=== PATIENT | male | born 1990 | race Caucasian/White ===

== ENCOUNTER 2018-12-05 19:00 | Emergency (ER) | payer MEDICAID ==
[2018-12-05] MEDS ORDERED: Pantoprazole 40 MG Vial IVPUSH ONE (19:39)
[2018-12-05] MEDS ORDERED: Sodium Chloride 0.9% 10 ML Syringe FLUSH PRN (19:39)
[2018-12-05] MEDS ORDERED: Ondansetron 4 MG/2 ML SDV IVPUSH ONE (19:39)
[2018-12-05] MEDS ORDERED: Sodium Chloride 0.9% 1,000 ML IV ONE (19:39)
[2018-12-05] MEDS ORDERED: Sodium Chloride 0.9% 2.5 ML Syringe FLUSH PRN (19:39)
--- NOTE | 2018-12-05 19:43 | EDM.PDOC ---
ED HPI GENERAL MEDICAL PROBLEM - General Chief Complaint: Abdominal Pain Stated Complaint: STOMACH PAINS Time Seen by Provider: 12/05/18 19:34 - History of Present Illness INITIAL COMMENTS - FREE TEXT/NARRATIVE: HISTORY AND PHYSICAL: History of present illness: The patient is a 28-year-old male with no GI history or abdominal surgical history who presents with a one-week history of left-sided upper abdominal pain which he indicates is underneath his left ribs. He says it radiates to the back and it is worse when he coughs. He's had nausea but no vomiting and no diarrhea. He denies any history of food intolerances and says the pain does not get better or worse with eating. He has not taken any [id number] meds such as antacids but did take an old amoxicillin because he thought he might have the flu. He says he does cough because he is a regular smoker and the discomfort underneath the ribs and in the abdomen is worse when he coughs. He told nursing that went to the right side but on my examination he did not state that and he denied any right-sided pain when I asked. He denied urinary symptoms and trauma. Patient admits that he smokes cigarettes and marijuana but denies meth or cocaine use. He says he is not had alcohol recently and there was no specific trigger for the start of this pain. He says it waxes and wanes over the last one week but never goes away completely. Review of systems: As per history of present illness and below otherwise all systems reviewed and negative. Past medical history: As per history of present illness and as reviewed below otherwise noncontributory. Surgical history: As per history of present illness and as reviewed below otherwise noncontributory. Social history: No reported history of drug or alcohol abuse. Family history: As per history of present illness and as reviewed below otherwise noncontributory. Physical exam: General: Well-developed well-nourished thin man who is nontoxic and vital signs are noted by me. A strong smell of tobacco is in the room. HEENT: Atraumatic, normocephalic, pupils reactive, negative for conjunctival pallor or scleral icterus, mucous membranes moist, throat clear, neck supple, nontender, trachea midline. Lungs: Clear to auscultation, breath sounds equal bilaterally, chest nontender. Heart: S1S2, regular, negative for clicks, rubs, or JVD. No overt murmur Abdomen: Soft, nondistended, bowel sounds are hypoactive and there is some mild tenderness in the left upper quadrant on deep palpation without rebound or guarding. There is no tympany on percussion. Negative for masses or hepatosplenomegaly. Negative for costovertebral tenderness. Pelvis: Stable nontender. Genitourinary: Deferred. Rectal: Deferred. Extremities: Atraumatic, negative for cords or calf pain. Neurovascular unremarkable. Neuro: Awake, alert, oriented. Cranial nerves II through XII unremarkable. Cerebellum unremarkable. Motor and sensory unremarkable throughout. Exam nonfocal. Diagnostics: CBC CMP amylase lipase H. pylori UA abdominal x-rays with chest Therapeutics: IV fluids Zofran and Protonix Patient is feeling better and is aware of all testing results but he keeps telling me that when he moves certain ways the pain will get worse which I told him is likely musculoskeletal as all sting results are negative. I've advised him to improve his diet and push hydration and will give him a PPI for home Impression: Left upper quadrant/side pain Definitive disposition and diagnosis as appropriate pending reevaluation and review of above. Abdomen Pain Score (Numeric/FACES): 8 - Related Data Allergies Allergy/AdvReac Type Severity Reaction Status Date / Time acetaminophen [From Tylenol] Allergy Hives Verified 12/05/18 19:32 ibuprofen Allergy Hives Verified 12/05/18 19:32 Home Meds: Home Meds . [No Known Home Meds] 12/05/18 [History] Past Medical History HEENT History: Reports: None Cardiovascular History: Reports: None Respiratory History: Reports: Asthma Gastrointestinal History: Reports: None Genitourinary History: Reports: None Musculoskeletal History: Reports: Fracture Neurological History: Reports: None Psychiatric History: Reports: Depression Endocrine/Metabolic History: Reports: None Hematologic History: Reports: None Immunologic History: Reports: None Oncologic (Cancer) History: Reports: None Dermatologic History: Reports: None - Infectious Disease History Infectious Disease History: Reports: Chicken Pox - Past Surgical History Head Surgeries/Procedures: Reports: None Social & Family History - Tobacco Use Smoking Status *Q: Current Every Day Smoker Years of Tobacco use: 14 Packs/Tins Daily: 1 - Caffeine Use Caffeine Use: Reports: Soda - Recreational Drug Use Recreational Drug Use: Yes Recreational Drug Type: Reports: Marijuana/Hashish Recreational Drug Use Frequency: Daily ED ROS GENERAL - Review of Systems Review Of Systems: ROS reveals no pertinent complaints other than HPI. ED EXAM, GENERAL - Physical Exam Exam: See Below (See dictation) Course - Vital Signs Last Recorded V/S: Last Vital Signs Temp 37.4 C 12/05/18 19:29 Pulse 63 12/05/18 19:29 Resp BP 118/63 12/05/18 19:29 Pulse Ox 98 12/05/18 19:29 - Orders/Labs/Meds Orders: Active Orders 24 hr Category Date Time Status Abdomen Series w Chest 1V [CR] Stat Exams 12/05/18 19:39 Taken Sodium Chloride 0.9% [Saline Flush] Med 12/05/18 19:39 Active 10 ml FLUSH ASDIRECTED PRN Sodium Chloride 0.9% [Saline Flush] Med 12/05/18 19:39 Active 2.5 ml FLUSH ASDIRECTED PRN Saline Lock Insert [OM.PC] Stat Oth 12/05/18 19:38 Ordered Medication Orders Sodium Chloride (Saline Flush) 10 ml FLUSH ASDIRECTED PRN PRN Reason: Keep Vein Open Sodium Chloride (Saline Flush) 2.5 ml FLUSH ASDIRECTED PRN PRN Reason: Keep Vein Open Labs: Laboratory Tests 12/05/18 12/05/18 12/05/18 Range/Units 19:40 19:40 19:40 WBC 7.79 (4.0-11.0) K/uL RBC 4.82 (4.50-5.90) M/uL Hgb 15.5 (13.0-17.0) g/dL Hct 43.6 (38.0-50.0) % MCV 90.5 (80.0-98.0) fL MCH 32.2 H (27.0-32.0) pg MCHC 35.6 (31.0-37.0) g/dL RDW Std Deviation 42.4 (28.0-62.0) fl RDW Coeff of Ciro 13 (11.0-15.0) % Plt Count 189 (150-400) K/uL MPV 10.00 (7.40-12.00) fL Neut % (Auto) 44.7 L (48.0-80.0) % Lymph % (Auto) 41.6 H (16.0-40.0) % Putnam % (Auto) 9.1 (0.0-15.0) % Eos % (Auto) 4.1 (0.0-7.0) % Baso % (Auto) 0.5 (0.0-1.5) % Neut # (Auto) 3.5 (1.4-5.7) K/uL Lymph # (Auto) 3.2 H (0.6-2.4) K/uL Putnam # (Auto) 0.7 (0.0-0.8) K/uL Eos # (Auto) 0.3 (0.0-0.7) K/uL Baso # (Auto) 0.0 (0.0-0.1) K/uL Nucleated RBC % 0.0 /100WBC Nucleated RBCs # 0 K/uL Sodium 139 (136-148) mmol/L Potassium 3.9 (3.5-5.1) mmol/L Chloride 105 (98-107) mmol/L Carbon Dioxide 26.4 (21.0-32.0) mmol/L BUN 16 (7.0-18.0) mg/dL Creatinine 1.1 (0.8-1.3) mg/dL Est Cr Clr Drug Dosing 91.92 mL/min Estimated GFR (MDRD) > 60.0 ml/min Glucose 120 H (74-106) mg/dL Calcium 8.8 (8.5-10.1) mg/dL Total Bilirubin 0.2 (0.2-1.0) mg/dL AST 21 (15-37) IU/L ALT 25 (14-63) IU/L Alkaline Phosphatase 77 (46-116) U/L Total Protein 7.6 (6.4-8.2) g/dL Albumin 4.2 (3.4-5.0) g/dL Globulin 3.4 (2.6-4.0) g/dL Albumin/Globulin Ratio 1.2 (0.9-1.6) Amylase (25-115) U/L Lipase (73-393) U/L Urine Color YELLOW Urine Appearance CLEAR Urine pH 6.0 (5.0-8.0) Ur Specific Felton 1.020 (1.001-1.035) Urine Protein NEGATIVE (NEGATIVE) mg/dL Urine Glucose (UA) NEGATIVE (NEGATIVE) mg/dL Urine Ketones NEGATIVE (NEGATIVE) mg/dL Urine Occult Blood NEGATIVE (NEGATIVE) Urine Nitrite NEGATIVE (NEGATIVE) Urine Bilirubin NEGATIVE (NEGATIVE) Urine Urobilinogen 1.0 (<2.0) EU/dL Ur Leukocyte Esterase NEGATIVE (NEGATIVE) H. pylori IgG Antibody (NEG) 12/05/18 12/05/18 Range/Units 19:40 19:40 WBC (4.0-11.0) K/uL RBC (4.50-5.90) M/uL Hgb (13.0-17.0) g/dL Hct (38.0-50.0) % MCV (80.0-98.0) fL MCH (27.0-32.0) pg MCHC (31.0-37.0) g/dL RDW Std Deviation (28.0-62.0) fl RDW Coeff of Ciro (11.0-15.0) % Plt Count (150-400) K/uL MPV (7.40-12.00) fL Neut % (Auto) (48.0-80.0) % Lymph % (Auto) (16.0-40.0) % Putnam % (Auto) (0.0-15.0) % Eos % (Auto) (0.0-7.0) % Baso % (Auto) (0.0-1.5) % Neut # (Auto) (1.4-5.7) K/uL Lymph # (Auto) (0.6-2.4) K/uL Putnam # (Auto) (0.0-0.8) K/uL Eos # (Auto) (0.0-0.7) K/uL Baso # (Auto) (0.0-0.1) K/uL Nucleated RBC % /100WBC Nucleated RBCs # K/uL Sodium (136-148) mmol/L Potassium (3.5-5.1) mmol/L Chloride (98-107) mmol/L Carbon Dioxide (21.0-32.0) mmol/L BUN (7.0-18.0) mg/dL Creatinine (0.8-1.3) mg/dL Est Cr Clr Drug Dosing mL/min Estimated GFR (MDRD) ml/min Glucose (74-106) mg/dL Calcium (8.5-10.1) mg/dL Total Bilirubin (0.2-1.0) mg/dL AST (15-37) IU/L ALT (14-63) IU/L Alkaline Phosphatase (46-116) U/L Total Protein (6.4-8.2) g/dL Albumin (3.4-5.0) g/dL Globulin (2.6-4.0) g/dL Albumin/Globulin Ratio (0.9-1.6) Amylase 43 (25-115) U/L Lipase 145 (73-393) U/L Urine Color Urine Appearance Urine pH (5.0-8.0) Ur Specific Felton (1.001-1.035) Urine Protein (NEGATIVE) mg/dL Urine Glucose (UA) (NEGATIVE) mg/dL Urine Ketones (NEGATIVE) mg/dL Urine Occult Blood (NEGATIVE) Urine Nitrite (NEGATIVE) Urine Bilirubin (NEGATIVE) Urine Urobilinogen (<2.0) EU/dL Ur Leukocyte Esterase (NEGATIVE) H. pylori IgG Antibody NEGATIVE (NEG) Meds: Medications Generic Name Dose Route Start Last Admin Trade Name Freq PRN Reason Stop Dose Admin Sodium Chloride 10 ml 12/05/18 19:39 Saline Flush FLUSH ASDIRECTED PRN Keep Vein Open Sodium Chloride 2.5 ml 12/05/18 19:39 Saline Flush FLUSH ASDIRECTED PRN Keep Vein Open Discontinued Medications Generic Name Dose Route Start Last Admin Trade Name Freq PRN Reason Stop Dose Admin Sodium Chloride 1,000 mls @ 999 mls/hr 12/05/18 19:27 12/05/18 20:01 Normal Saline IV 12/05/18 20:27 Not Given STAT ONE Sodium Chloride 1,000 mls @ 999 mls/hr 12/05/18 19:39 12/05/18 19:47 Normal Saline IV 12/05/18 20:39 999 mls/hr STAT ONE Administration Ondansetron HCl 4 mg 12/05/18 19:39 12/05/18 19:52 Zofran IVPUSH 12/05/18 19:40 4 mg ONETIME ONE Administration Pantoprazole Sodium 80 mg 12/05/18 19:39 12/05/18 19:53 Protonix Iv IVPUSH 12/05/18 19:40 80 mg .BOLUS ONE Administration Departure - Departure Time of Disposition: 21:31 Disposition: Home, Self-Care 01 Condition: Good Clinical Impression: Abdominal pain Qualifiers: Abdominal location: left upper quadrant Qualified Code(s): R10.12 - Left upper quadrant pain - Discharge Information Referrals: PCP,None [Primary Care Provider] - Forms: ED Department Discharge Additional Instructions: The following information is given to patients seen in the emergency department who are being discharged to home. This information is to outline your options for follow-up care. We provide all patients seen in our emergency department with a follow-up referral. The need for follow-up, as well as the timing and circumstances, are variable depending upon the specifics of your emergency department visit. If you don't have a primary care physician on staff, we will provide you with a referral. We always advise you to contact your personal physician following an emergency department visit to inform them of the circumstance of the visit and for follow-up with them and/or the need for any referrals to a consulting specialist. The emergency department will also refer you to a specialist when appropriate. This referral assures that you have the opportunity for followup care with a specialist. All of these measure are taken in an effort to provide you with optimal care, which includes your followup. Under all circumstances we always encourage you to contact your private physician who remains a resource for coordinating your care. When calling for followup care, please make the office aware that this follow-up is from your recent emergency room visit. If for any reason you are refused follow-up, please contact the [facility] emergency department at and ask to speak to the emergency department charge nurse. [facility] Primary care- Internal Medicine and Family [address] [address] Push hydration and reduce caffeine intake and try to eat more healthy foods other than fast foods junk foods and fatty foods. Use Prevacid as prescribed and please call and schedule a follow-up appointment in our clinic as we discussed for further care and evaluation. Return to ER as needed and as discussed - My Orders Last 24 Hours: My Active Orders 12/05/18 19:38 Saline Lock Insert [OM.PC] Stat 12/05/18 19:39 Abdomen Series w Chest 1V [CR] Stat Sodium Chloride 0.9% [Saline Flush] 10 ml FLUSH ASDIRECTED PRN Sodium Chloride 0.9% [Saline Flush] 2.5 ml FLUSH ASDIRECTED PRN - Assessment/Plan Last 24 Hours: My Active Orders 12/05/18 19:38 Saline Lock Insert [OM.PC] Stat 12/05/18 19:39 Abdomen Series w Chest 1V [CR] Stat Sodium Chloride 0.9% [Saline Flush] 10 ml FLUSH ASDIRECTED PRN Sodium Chloride 0.9% [Saline Flush] 2.5 ml FLUSH ASDIRECTED PRN
[2018-12-05] MEDS: Sodium Chloride 0.9% 1,000 ML IV ONE ×2 (19:57→20:01)
[2018-12-05 20:09] LABS: CHLORIDE,CL 105 mmol/L (98-107); SODIUM,NA 139 mmol/L (136-148)
--- NOTE | 2018-12-06 10:29 | CR ---
EXAM DATE: 12/05/18 PATIENT'S AGE: 28 Patient: CLAY RIVAS Facility: [facility] Site . Site : 1990 Study: XRay-Abdomen [id number]/11/2019 8:39:04 PM Ordering Physician: Manpreet Muniz Final Report: Indication: Abdominal pain. Technique: Chest one-view. Abdomen three views. Comparison: None. Findings: No pneumothorax, pleural effusion or airspace consolidation. Cardiac and mediastinal contours are within normal limits. The bowel gas pattern is nonobstructive. No evidence of free intraperitoneal gas. Soft tissues elsewhere as imaged are unremarkable. Visualized osseous structures are intact. Impression: No evidence of acute cardiopulmonary disease. Nonobstructive bowel gas pattern. Dictated by Mynor Curran MD @ 12/05/2018 9:08:23 PM Dictated by: Mynor Curran MD @ 12/05/2018 21:08:38 Signed by: Mynor Curran MD @12/05/2018 9:08:38 PM (Electronic Signature) Report Signed by Proxy. [facility]
== END 2018-12-05 21:40 | disposition home or self-care (01) ==
LOC: MW.ED 19:00
DX: R10.12 Left upper quadrant pain (principal); F17.210 Nicotine dependence, cigarettes, uncomplicated; Z88.8 Allergy status to other drugs, medicaments and biological substances
CPT/HCPCS: 74022; 80053; 81003; 82150; 83690; 85025; 86677; 96361; 96374; 96375; 99284; C9113; J2405; J7040; 99283